=== PATIENT | male | born 1990 ===

== ENCOUNTER → 2025-06-16 | Outpatient (CLI) | payer MEDICAID, SELFPAY ==
--- NOTE | 2025-06-16 11:30 | XR_ITS ---
Examination: Abdomen sonogram, complete Date and time of exam: June 16, 2025 1210 hours INDICATIONS: Left upper abdominal pain beginning one year ago. Technique: Multiple real-time grayscale transabdominal sonographic images of the abdomen have been obtained. Findings: Normal gallbladder. Normal common bile duct 0.2 cm Pancreatic head 2.4 cm Aorta not enlarged. Liver 17.1 cm fatty infiltration Normal hepatopedal portal venous flow Patent IVC Right kidney 10.1 cm cortex 1.8 cm Left kidney 10.6 cm cortex 1.7 cm Spleen 13.2 cm IMPRESSION: Normal gallbladder Mild hepatosplenomegaly
== END | disposition home or self-care (01) ==
PROVIDERS: PCP Student in an Organized Health Care Education/Training Program; Referring Provider Student in an Organized Health Care Education/Training Program; Visit Provider Student in an Organized Health Care Education/Training Program
DX: R16.2 Hepatomegaly with splenomegaly, not elsewhere classified (principal)
CPT/HCPCS: 76700